=== PATIENT | female | born 1955 | race African-American/Black ===

== ENCOUNTER 2016-11-06 10:29 | Emergency (ER) | payer MEDICARE, MEDICAID ==
[2016-11-06] MEDS ORDERED: Sodium Chloride 0.9% 1,000 ML ONE (11:17)
[2016-11-06] MEDS ORDERED: Ondansetron HCl/PF 4 MG/2 ML Vial ONE (11:28)
[2016-11-06 11:29] LABS: #Basophils 0.1 thou/uL (0.0-0.2); #Lymphocytes 1.6 thou/uL (1.20-3.40); #Monocytes 0.3 thou/uL (0.11-0.59); #Neutrophils 5.1 thou/uL (1.40-6.50); %Basophils 0.8 % (0.0-1.0); %Eosinophils 0.1 % (0.0-10.0); %Lymphocytes 22.9 % (21.0-51.0); %Monocytes 4.5 % (0.0-10.0); %Neutrophils 71.6 % (42.0-75.0); Hemoglobin 14.7 g/dL (12.0-16.0); Mean Corpuscular HGB CONC 32.5 g/dL (32.0-36.0); Mean Corpuscular Hemoglobin 27.1 pg (27.0-31.0); Mean Corpuscular Volume 83.3 fl (81.0-99.0); Mean Platelet Volume 7.2 fL (7.4-10.4); Platelet Count 281 thou/uL (130-400); RBC Distribution Width 13.3 % (11.5-14.5); Red Blood Cell (RBC) Count 5.41 mill/uL (4.20-5.40); White Blood Cell (WBC) Count 7.2 thou/uL (4.8-10.8)
[2016-11-06 11:41] LABS: CKMB 0.8 ng/mL (0-6.6); Troponin I Less than 0.010 ng/mL (< 0.028)
[2016-11-06 11:49] LABS: ALT (SGPT) 26 U/L (0-55); AST (SGOT) 21 U/L (5-34); Albumin 4.1 g/dL (3.4-4.8); Alkaline Phosphatase 78 U/L (40-150); Amylase 47 U/L (25-125); Anion Gap 18 mmol/L (10-20); BUN (Urea Nitrogen) 13 mg/dL (9.8-20.1); Bilirubin, Total 0.4 mg/dL (0.2-1.2); CK (CPK) 98 U/L (29-168); Calc. Creatinine Clearance 0 mL/min (70-130); Calcium 8.7 mg/dL (7.8-10.44); Carbon Dioxide 16 mmol/L (23-31); Chloride 105 mmol/L (98-107); Estimated GFR-MDRD 86; Globulin 3.5 g/dL (2.4-3.5); Glucose 104 mg/dL (80-115); Lipase 4 U/L (8-78); Potassium 4.5 mmol/L (3.5-5.1); Protein, Total 7.6 g/dL (5.8-8.1); Sodium 134 mmol/L (136-145)
== END 2016-11-06 12:35 | disposition home or self-care (01) ==
LOC: NAV ERS 10:29
DX: R10.13 Epigastric pain (principal); R10.33 Periumbilical pain; R19.7 Diarrhea, unspecified; I10 Essential (primary) hypertension; E11.9 Type 2 diabetes mellitus without complications; J45.909 Unspecified asthma, uncomplicated; Z79.82 Long term (current) use of aspirin; Z79.84 Long term (current) use of oral hypoglycemic drugs; Z79.891 Long term (current) use of opiate analgesic; Z79.899 Other long term (current) drug therapy
CPT/HCPCS: 80053; 82150; 82553; 83690; 84484; 85025; 93005; 96361; 96374; 96375; J2270; J2405; J7050

== ENCOUNTER 2017-01-29 09:10 | Outpatient (CLI) | payer MEDICARE ==
[2017-01-29 11:34] LABS: #Basophils 0.1 thou/uL (0.0-0.2); #Lymphocytes 2.1 thou/uL (1.20-3.40); #Monocytes 0.3 thou/uL (0.11-0.59); #Neutrophils 2.6 thou/uL (1.40-6.50); %Basophils 1.1 % (0.0-1.0); %Eosinophils 0.1 % (0.0-10.0); %Lymphocytes 41.1 % (21.0-51.0); %Monocytes 6.7 % (0.0-10.0); %Neutrophils 51.1 % (42.0-75.0); Hemoglobin 13.6 g/dL (12.0-16.0); Mean Corpuscular HGB CONC 31.6 g/dL (32.0-36.0); Mean Corpuscular Hemoglobin 27.2 pg (27.0-31.0); Mean Corpuscular Volume 86.1 fl (81.0-99.0); Mean Platelet Volume 6.5 fL (7.4-10.4); Platelet Count 332 thou/uL (130-400); RBC Distribution Width 13.6 % (11.5-14.5); White Blood Cell (WBC) Count 5.2 thou/uL (4.8-10.8)
[2017-01-29 11:43] LABS: Anion Gap 17 mmol/L (10-20); BUN (Urea Nitrogen) 13 mg/dL (9.8-20.1); Calc. Creatinine Clearance 0 mL/min (70-130); Calcium 9.5 mg/dL (7.8-10.44); Carbon Dioxide 21 mmol/L (23-31); Cardiac Risk 3.7 (Less than 4.5); Chloride 103 mmol/L (98-107); Cholesterol 157 mg/dl (< 200 Desired); Estimated GFR-MDRD 82; Glucose 85 mg/dL (80-115); HDL Cholesterol 43 mg/dL (>60 Neg Risk); LDL Cholesterol, Calculated 96 mg/dL; Potassium 4.1 mmol/L (3.5-5.1); Sodium 137 mmol/L (136-145); Triglycerides 89 mg/dL (Less than 150)
[2017-01-29 12:01] LABS: Hemoglobin A1c 5.4 % (4.0-6.0)
== END 2017-01-29 09:11 | disposition home or self-care (01) ==
LOC: NAV LAB 09:10
PROVIDERS: ATTEND Family Medicine
DX: E78.5 Hyperlipidemia, unspecified (principal); E11.9 Type 2 diabetes mellitus without complications; I10 Essential (primary) hypertension
CPT/HCPCS: 80048; 80061; 83036; 85025

== ENCOUNTER 2017-05-26 20:54 | Emergency (ER) | payer MEDICARE, MEDICAID ==
[2017-05-26] MEDS ORDERED: Ibuprofen 200 MG TAB ONE (21:13)
== END 2017-05-26 21:17 | disposition home or self-care (01) ==
LOC: NAV ERS 20:54
DX: S39.012A Strain of muscle, fascia and tendon of lower back, initial encounter (principal); I10 Essential (primary) hypertension; E11.9 Type 2 diabetes mellitus without complications; J45.909 Unspecified asthma, uncomplicated; Z79.891 Long term (current) use of opiate analgesic; Z79.82 Long term (current) use of aspirin; Z79.899 Other long term (current) drug therapy; Z79.84 Long term (current) use of oral hypoglycemic drugs; X50.1XXA Overexertion from prolonged static or awkward postures, initial encounter
CPT/HCPCS: 99283

== ENCOUNTER 2017-06-05 10:29 | Emergency (ER) | payer MEDICARE, MEDICAID | END 2017-06-05 11:11 | disposition home or self-care (01) | LOC: NAV ERS 10:29 | DX: J01.90 Acute sinusitis, unspecified (principal); E11.43 Type 2 diabetes mellitus with diabetic autonomic (poly)neuropathy; K31.84 Gastroparesis; I10 Essential (primary) hypertension; J45.909 Unspecified asthma, uncomplicated; Z79.84 Long term (current) use of oral hypoglycemic drugs; Z79.82 Long term (current) use of aspirin; Z79.899 Other long term (current) drug therapy | CPT/HCPCS: 99283 ==

== ENCOUNTER 2017-08-06 18:40 | Emergency (ER) | payer MEDICARE, MEDICAID ==
[2017-08-06 19:04] LABS: Bilirubin Negative (Negative); Blood, Urine Negative (Negative); Clarity Clear (Clear); Glucose, Urine (Dipstick) Negative (Negative); Leukocyte Negative (Negative); Nitrite Negative (Negative); Protein, Urine (Dipstick) Negative (Neg-Trace); pH, Urine 5.5 (5.0-9.0)
[2017-08-06 19:09] LABS: Specific Gravity, Urine 1.028 (1.002-1.036)
[2017-08-06] MEDS ORDERED: Promethazine HCl 25 MG/ML VIAL ONE (19:29)
[2017-08-06] MEDS ORDERED: Sodium Chloride 0.9% 1,000 ML ONE (19:29)
[2017-08-06 19:40] LABS: #Basophils 0.1 thou/uL (0.0-0.2); #Lymphocytes 3.1 thou/uL (1.20-3.40); #Monocytes 0.4 thou/uL (0.11-0.59); #Neutrophils 3.7 thou/uL (1.40-6.50); %Basophils 0.9 % (0.0-1.0); %Eosinophils 0.1 % (0.0-10.0); %Lymphocytes 42.7 % (21.0-51.0); %Monocytes 5.2 % (0.0-10.0); %Neutrophils 51.1 % (42.0-75.0); Hemoglobin 13.7 g/dL (12.0-16.0); Mean Corpuscular HGB CONC 32.6 g/dL (32.0-36.0); Mean Corpuscular Hemoglobin 26.7 pg (27.0-31.0); Mean Platelet Volume 8.4 fL (7.4-10.4); Platelet Count 320 thou/uL (130-400); RBC Distribution Width 12.8 % (11.5-14.5); Red Blood Cell (RBC) Count 5.12 mill/uL (4.20-5.40); White Blood Cell (WBC) Count 7.2 thou/uL (4.8-10.8)
[2017-08-06 20:02] LABS: ALT (SGPT) 16 U/L (8-55); AST (SGOT) 13 U/L (5-34); Albumin 4.1 g/dL (3.4-4.8); Alkaline Phosphatase 71 U/L (40-150); Anion Gap 14 mmol/L (10-20); BUN (Urea Nitrogen) 9 mg/dL (9.8-20.1); Bilirubin, Total 0.3 mg/dL (0.2-1.2); Calc. Creatinine Clearance 0 mL/min (70-130); Calcium 9.5 mg/dL (7.8-10.44); Carbon Dioxide 24 mmol/L (23-31); Chloride 104 mmol/L (98-107); Estimated GFR-MDRD 73; Globulin 2.9 g/dL (2.4-3.5); Glucose 98 mg/dL (80-115); Lipase 4 U/L (8-78); Potassium 3.9 mmol/L (3.5-5.1); Sodium 138 mmol/L (136-145)
== END 2017-08-06 20:55 | disposition home or self-care (01) ==
LOC: NAV ERS 18:40
DX: R10.13 Epigastric pain (principal); I10 Essential (primary) hypertension; E11.43 Type 2 diabetes mellitus with diabetic autonomic (poly)neuropathy; K31.84 Gastroparesis; J45.909 Unspecified asthma, uncomplicated; Z79.82 Long term (current) use of aspirin; Z79.52 Long term (current) use of systemic steroids; Z79.899 Other long term (current) drug therapy
CPT/HCPCS: 80053; 81003; 83690; 85025; 93005; 96361; 96372; 96374; J2550; J7050

== ENCOUNTER 2018-02-05 00:45 | Emergency (ER) | payer MEDICARE, MEDICAID ==
[2018-02-05] MEDS ORDERED: Acetaminophen 500 MG TAB ONE (01:10)
[2018-02-05 01:15] LABS: Bilirubin Negative (Negative); Blood, Urine Trace (Negative); Clarity Clear (Clear); Glucose, Urine (Dipstick) Negative (Negative); Leukocyte Negative (Negative); Nitrite Negative (Negative); Protein, Urine (Dipstick) Negative (Neg-Trace); Urobilinogen 0.2 mg/dL (0.2-1.0); pH, Urine 5.5 (5.0-9.0)
[2018-02-05 01:20] LABS: RBC/HPF 0-3 HPF (0-3); Squamous Epithelial 0-3 HPF (0-3); WBC/HPF None Seen HPF (0-3)
--- NOTE | 2018-02-05 09:53 | RAD ---
RADIOGRAPH CHEST 2 VIEWS: HISTORY: A 62-year-old female with fever and cough. FINDINGS: There is no air space density, pulmonary edema, pleural effusion, pneumothorax, or cardiomegaly. IMPRESSION: No acute cardiopulmonary findings. jn [] POS: [facility]
== END 2018-02-05 01:30 | disposition home or self-care (01) ==
LOC: NAV ERS 00:45
DX: R50.9 Fever, unspecified (principal); R05 Cough; I10 Essential (primary) hypertension; Z79.899 Other long term (current) drug therapy; Z79.84 Long term (current) use of oral hypoglycemic drugs; Z79.82 Long term (current) use of aspirin
CPT/HCPCS: 36416; 71046; 81003; 81015; 99283

== ENCOUNTER 2018-06-04 15:22 | Emergency (ER) | payer MEDICARE, MEDICAID ==
[2018-06-04] MEDS ORDERED: HYDROcodone/Acetaminophen 5/325 mg Tablet ONE (16:12)
--- NOTE | 2018-06-04 16:29 | RAD ---
RADIOGRAPH RIGHT SHOULDER THREE VIEWS: HISTORY: A 62-year-old female with nontraumatic right shoulder pain for one month, worsening recently. FINDINGS: No fracture or dislocation. Mild to moderate degenerative changes at the AC joint. No high-grade DJ D at the glenohumeral joint. IMPRESSION: Osteoarthrosis of the acromioclavicular joint. POS: [facility]
== END 2018-06-04 17:23 | disposition home or self-care (01) ==
LOC: NAV ERS 15:22
DX: M25.511 Pain in right shoulder (principal); I10 Essential (primary) hypertension; E11.9 Type 2 diabetes mellitus without complications; J45.909 Unspecified asthma, uncomplicated; Z79.899 Other long term (current) drug therapy

== ENCOUNTER 2018-08-09 20:14 | Emergency (ER) | payer MEDICARE, MEDICAID ==
[2018-08-09] MEDS ORDERED: Albuterol Sulfate 2.5 mg/3 ml Neb ONE (21:30)
[2018-08-09] MEDS ORDERED: Acetaminophen 325 MG TAB ONE (21:30)
[2018-08-09] MEDS ORDERED: Promethazine 25 MG TAB ONE (21:30)
--- NOTE | 2018-08-09 22:16 | RAD ---
CHEST TWO VIEWS: HISTORY: Cough. COMPARISON: 02/05/2018 FINDINGS: Enlarged cardiac silhouette. Pulmonary vessels and hilum are normal. Costophrenic angles are clear. No mass. No consolidation. No pneumothorax or osseous abnormalities. Small hiatal hernia is susp ected. IMPRESSION: Cardiomegaly. No acute cardiopulmonary process. POS: [facility]
[2018-08-09] MEDS ORDERED: predniSONE 20 MG TAB ONE (22:28)
[2018-08-09] MEDS ORDERED: Azithromycin 250 MG TAB ONE (22:28)
== END 2018-08-09 22:39 | disposition home or self-care (01) ==
LOC: NAV ERS 20:14
DX: R06.02 Shortness of breath (principal); I10 Essential (primary) hypertension; R05 Cough; E11.9 Type 2 diabetes mellitus without complications; J45.909 Unspecified asthma, uncomplicated; Z79.899 Other long term (current) drug therapy; Z79.84 Long term (current) use of oral hypoglycemic drugs; Z79.82 Long term (current) use of aspirin
CPT/HCPCS: 71046; J7506; J7611; Q0169

== ENCOUNTER 2018-09-20 09:38 | Emergency (ER) | payer MEDICARE, MEDICAID ==
[2018-09-20] MEDS ORDERED: Adacel (T-DAP) 0.5 ML SYRINGE ONE (10:27)
[2018-09-20] MEDS ORDERED: Bacitracin Zinc 1 Packet ONE (10:27)
== END 2018-09-20 10:55 | disposition home or self-care (01) ==
LOC: NAV ERS 09:38
DX: T63.441A Toxic effect of venom of bees, accidental (unintentional), initial encounter (principal); J45.909 Unspecified asthma, uncomplicated; E11.43 Type 2 diabetes mellitus with diabetic autonomic (poly)neuropathy; K31.84 Gastroparesis
CPT/HCPCS: 90471; 90715

== ENCOUNTER 2018-12-27 11:24 | Emergency (ER) | payer MEDICARE, MEDICAID ==
[2018-12-27 12:07] LABS: #Lymphocytes 2.2 thou/uL (1.20-3.40); #Monocytes 0.5 thou/uL (0.11-0.59); #Neutrophils 4.1 thou/uL (1.40-6.50); %Basophils 0.5 % (0.0-1.0); %Lymphocytes 32.4 % (21.0-51.0); %Monocytes 7.1 % (0.0-10.0); Hemoglobin 13.9 g/dL (12.0-16.0); Mean Corpuscular HGB CONC 30.8 g/dL (32.0-36.0); Mean Corpuscular Hemoglobin 25.8 pg (27.0-31.0); Mean Corpuscular Volume 83.9 fL (78.0-98.0); Platelet Count 361 thou/uL (130-400); RBC Distribution Width 13.1 % (11.5-14.5); Red Blood Cell (RBC) Count 5.37 mill/uL (4.20-5.40); White Blood Cell (WBC) Count 6.8 thou/uL (4.8-10.8)
[2018-12-27] MEDS ORDERED: Sodium Chloride 0.9% 1,000 ML ONE (12:09)
[2018-12-27] MEDS ORDERED: Fentanyl 100 MCG/2 ML VIAL ONE (12:09)
[2018-12-27] MEDS ORDERED: Ondansetron PF 4 MG/2 ML Vial ONE (12:10)
[2018-12-27] MEDS ORDERED: Pantoprazole 40 MG VIAL ONE (12:10)
[2018-12-27 12:29] LABS: ALT (SGPT) 29 U/L (8-55); AST (SGOT) 20 U/L (5-34); Albumin 4.2 g/dL (3.4-4.8); Alkaline Phosphatase 94 U/L (40-150); Anion Gap 15 mmol/L (10-20); BUN (Urea Nitrogen) 11 mg/dL (9.8-20.1); Bilirubin, Total 0.3 mg/dL (0.2-1.2); CK (CPK) 148 U/L (29-168); Calc. Creatinine Clearance 0 mL/min (70-130); Calcium 8.9 mg/dL (7.8-10.44); Carbon Dioxide 22 mmol/L (23-31); Chloride 106 mmol/L (98-107); Estimated GFR-MDRD 83; Globulin 2.6 g/dL (2.4-3.5); Glucose 90 mg/dL (80-115); Lipase 4 U/L (8-78); Protein, Total 6.8 g/dL (6.0-8.3); Sodium 139 mmol/L (136-145)
[2018-12-27] MEDS ORDERED: Lidocaine Viscous Sol 2% 15 ml UD Cup ONE (12:34)
[2018-12-27] MEDS ORDERED: Mag-Al Plus 1200 MG/1200 MG/120 MG/30 ML UDCUP ONE (12:34)
--- NOTE | 2018-12-27 12:45 | ULT ---
Abdominal ultrasound: Grayscale images of abdomen obtained according to protocol. INDICATIONS: Abdominal pain FINDINGS: Exam is limited due to patient's body habitus. Patient is post cholecystectomy. Common bile duct is normal caliber. Liver and spleen appear unremarkable. Pancreas is mostly obscured but appears unremarkable as visualized. Aorta and IVC are not adequately imaged. Both kidneys are imaged and appear unremarkable. IMPRESSION: Limited exam. No abnormality identified.
== END 2018-12-27 13:55 | disposition home or self-care (01) ==
LOC: NAV ERS 11:24
DX: R10.13 Epigastric pain (principal); R10.11 Right upper quadrant pain; E11.43 Type 2 diabetes mellitus with diabetic autonomic (poly)neuropathy; K31.84 Gastroparesis; I10 Essential (primary) hypertension; J45.909 Unspecified asthma, uncomplicated; R11.0 Nausea; Z79.899 Other long term (current) drug therapy; Z79.82 Long term (current) use of aspirin; Z79.84 Long term (current) use of oral hypoglycemic drugs
CPT/HCPCS: 76700; 80053; 82550; 83690; 84484; 85025; 93005; C9113; J2405; J3010; J7050

== ENCOUNTER 2019-07-01 12:49 | Emergency (ER) | payer MEDICARE, MEDICAID ==
[2019-07-01] MEDS ORDERED: HYDROcodone/Acetaminophen 5/325 mg Tablet ONE (13:13)
--- NOTE | 2019-07-01 13:34 | RAD ---
RIGHT KNEE FOUR VIEWS: HISTORY: Knee pain. Fall with injury. FINDINGS: Moderate degenerative changes. Loss of medial and lateral joint space, more prominent medially. Spurr ing from the femoral condyles and patella. No fracture or acute abnormality. No evidence of joint eff usion. IMPRESSION: Moderate degenerative changes of right knee. POS: [facility]
--- NOTE | 2019-07-01 13:41 | RAD ---
LUMBAR SPINE FOUR VIEWS: HISTORY: Fall with low back pain. FINDINGS: Lumbar vertebrae maintain normal height and alignment. Disk spaces are preserved. Mild degenerative s purring. Mild facet hypertrophy. No evidence of spondylolisthesis. Prominent anterior bridging osteophyte seen at the T10-T11 level on the sagittal view. IMPRESSION: Mild degenerative changes of the lumbar spine. No compression or acute fracture identified. POS: [facility]
== END 2019-07-01 14:25 | disposition home or self-care (01) ==
LOC: NAV ERS 12:49
DX: S83.91XA Sprain of unspecified site of right knee, initial encounter (principal); S33.5XXA Sprain of ligaments of lumbar spine, initial encounter; I10 Essential (primary) hypertension; E11.43 Type 2 diabetes mellitus with diabetic autonomic (poly)neuropathy; K31.84 Gastroparesis; J45.909 Unspecified asthma, uncomplicated; Z79.899 Other long term (current) drug therapy; Z79.4 Long term (current) use of insulin; Z79.891 Long term (current) use of opiate analgesic; Z79.82 Long term (current) use of aspirin; W18.30XA Fall on same level, unspecified, initial encounter
CPT/HCPCS: 72100

== ENCOUNTER 2020-04-30 09:48 | Emergency (ER) | payer MEDICARE, MEDICAID ==
[2020-04-30] MEDS ORDERED: methylPREDNISolone Sod Succ/PF 125 MG/2 ML VIAL ONE (11:00)
== END 2020-04-30 11:09 | disposition home or self-care (01) ==
LOC: NAV ERS 09:48
DX: J45.909 Unspecified asthma, uncomplicated (principal); E11.9 Type 2 diabetes mellitus without complications; I10 Essential (primary) hypertension; Z79.899 Other long term (current) drug therapy
CPT/HCPCS: 96372; 99283; J2930

== ENCOUNTER 2020-10-28 17:15 | Emergency (ER) | payer MEDICARE, OTHER, MEDICAID ==
[2020-10-28] MEDS ORDERED: Famotidine/PF 20 mg/2ml Vial ONE (17:53)
[2020-10-28] MEDS ORDERED: methylPREDNISolone Sod Succ/PF 125 MG/2 ML VIAL ONE (17:53)
[2020-10-28] MEDS ORDERED: diphenhydrAMINE 50 MG/ML VIAL ONE (17:53)
== END 2020-10-28 18:53 | disposition home or self-care (01) ==
LOC: NAV ERS 17:15
DX: L50.0 Allergic urticaria (principal); E11.9 Type 2 diabetes mellitus without complications; I10 Essential (primary) hypertension; Z79.899 Other long term (current) drug therapy
CPT/HCPCS: 94760; 96374; 96375; J1200; J2930; S0028

== ENCOUNTER 2022-01-22 08:21 | Outpatient (CLI) | payer MEDICARE, MEDICAID | END 2022-01-22 08:22 | disposition home or self-care (01) | LOC: NAV RAD 08:21 | PROVIDERS: ATTEND Family Medicine | DX: M47.16 Other spondylosis with myelopathy, lumbar region (principal) | CPT/HCPCS: 72100 ==

== ENCOUNTER 2022-05-15 02:34 | Emergency (ER) | payer OTHER, MEDICAID ==
[2022-05-15] MEDS ORDERED: Benzonatate 100 MG CAP ONE (03:25)
[2022-05-15] MEDS ORDERED: methylPREDNISolone Acetate 40 mg/ml Vial ONE (03:25)
== END 2022-05-15 03:50 | disposition home or self-care (01) ==
LOC: NAV ERS 02:34
DX: J20.9 Acute bronchitis, unspecified (principal); H10.13 Acute atopic conjunctivitis, bilateral; J30.9 Allergic rhinitis, unspecified; I10 Essential (primary) hypertension; E11.43 Type 2 diabetes mellitus with diabetic autonomic (poly)neuropathy; K31.84 Gastroparesis
CPT/HCPCS: 96372; 99283; J1030

== ENCOUNTER 2022-10-30 22:20 | Emergency (ER) | payer OTHER, MEDICAID ==
[2022-10-30 23:00] LABS: Bacteria/HPF None Seen HPF (None Seen); Bilirubin Negative (Negative); Blood, Urine Trace (Negative); Clarity Clear (Clear); Glucose, Urine (Dipstick) >=1000 mg/dL (Negative); Ketone, Urine Negative (Negative); Leukocyte Negative (Negative); Nitrite Negative (Negative); Protein, Urine (Dipstick) Negative (Neg-Trace); RBC/HPF None Seen HPF (0-3); Specific Gravity, Urine 1.015 (1.005-1.030); Urobilinogen 0.2 mg/dL (Less than 2); WBC/HPF None Seen HPF (0-3); Yeast-Budding Rare HPF (None Seen); pH, Urine 5.5 (5.0-9.0)
[2022-10-30 23:01] LABS: #Lymphocytes 2.1 thou/uL (1.20-3.40); #Monocytes 0.4 thou/uL (0.11-0.59); #Neutrophils 4.3 thou/uL (1.40-6.50); %Basophils 0.7 % (0.0-1.0); %Eosinophils 0.1 % (0.0-10.0); %Lymphocytes 30.5 % (21.0-51.0); %Monocytes 6.2 % (0.0-10.0); %Neutrophils 62.5 % (42.0-75.0); Hemoglobin 15.4 g/dL (12.0-16.0); Mean Corpuscular HGB CONC 31.2 g/dL (32.0-36.0); Mean Corpuscular Hemoglobin 26.8 pg (27.0-31.0); Mean Corpuscular Volume 85.9 fl (78.0-98.0); Mean Platelet Volume 6.7 fL (7.4-10.4); Platelet Count 307 10x3/uL (130-400); Red Blood Cell (RBC) Count 5.74 mill/uL (4.20-5.40); White Blood Cell (WBC) Count 6.8 10x3/uL (4.8-10.8)
[2022-10-30] MEDS ORDERED: Sodium Chloride 0.9% 1,000 ML ONE (23:02)
[2022-10-30] MEDS ORDERED: Ondansetron PF 4 MG/2 ML Vial ONE (23:02)
[2022-10-30] MEDS ORDERED: Dicyclomine 20 MG/2 ML VIAL ONE (23:02)
[2022-10-30 23:15] LABS: ALT (SGPT) 26 U/L (8-55); AST (SGOT) 19 U/L (5-34); Albumin 4.1 g/dL (3.4-4.8); Alkaline Phosphatase 86 U/L (40-110); Anion Gap 18 mmol/L (10-20); BUN (Urea Nitrogen) 7 mg/dL (9.8-20.1); Bilirubin, Total 0.4 mg/dL (0.2-1.2); Calc. Creatinine Clearance 0 mL/min (70-130); Calcium 8.7 mg/dL (7.8-10.44); Carbon Dioxide 22 mmol/L (23-31); Chloride 104 mmol/L (98-107); Estimated GFR 77; Globulin 2.9 g/dL (2.4-3.5); Glucose 170 mg/dL (80-115); Potassium 2.9 mmol/L (3.5-5.1); Sodium 141 mmol/L (136-145)
[2022-10-30] MEDS ORDERED: Potassium Chloride 20 MEQ TAB ONE (23:43)
[2022-10-31] MEDS ORDERED: Dextrose 5 %-0.45 % NaCl 1,000 ML ONE (10:10)
[2022-10-31] MEDS ORDERED: Morphine 2 MG/ML VIAL ONE (10:10)
[2022-10-31] MEDS ORDERED: Potassium Chloride 20 MEQ/100 ML PREMIX BAG ONE (11:13)
== END 2022-10-31 13:42 | disposition short-term general hospital (02) ==
LOC: NAV ERS 22:20
DX: K56.609 Unspecified intestinal obstruction, unspecified as to partial versus complete obstruction (principal); E11.9 Type 2 diabetes mellitus without complications; I10 Essential (primary) hypertension; J45.909 Unspecified asthma, uncomplicated; Z79.899 Other long term (current) drug therapy; Z79.84 Long term (current) use of oral hypoglycemic drugs; Z79.82 Long term (current) use of aspirin; E87.6 Hypokalemia
CPT/HCPCS: 36416; 74176; 80053; 81003; 81015; 83605; 83690; 85025; 87040; 96365; 96366; 96372; 96375; J2272; J2405; J3480; J7042; J7050

== ENCOUNTER 2023-08-10 07:11 | Emergency (ER) | payer OTHER, MEDICAID ==
[2023-08-10] MEDS ORDERED: Ipratropium/Albuterol 3 ML NEB ONE ×2 (07:48→08:51)
[2023-08-10 08:18] LABS: #Basophils 0.1 thou/uL (0.0-0.2); #Lymphocytes 2.7 thou/uL (1.20-3.40); #Monocytes 0.6 thou/uL (0.11-0.59); #Neutrophils 5.4 thou/uL (1.40-6.50); %Basophils 1.3 % (0.0-1.0); %Eosinophils 0.1 % (0.0-10.0); %Lymphocytes 30.8 % (21.0-51.0); %Neutrophils 60.9 % (42.0-75.0); Hematocrit 44.3 % (36.0-47.0); Hemoglobin 14.4 g/dL (12.0-16.0); Mean Corpuscular HGB CONC 32.5 g/dL (32.0-36.0); Mean Platelet Volume 7.4 fL (7.4-10.4); Platelet Count 312 10x3/uL (130-400); RBC Distribution Width 13.6 % (11.5-14.5); Red Blood Cell (RBC) Count 5.34 mill/uL (4.20-5.40); White Blood Cell (WBC) Count 8.8 10x3/uL (4.8-10.8)
[2023-08-10 08:29] LABS: Troponin I Less than 0.010 ng/mL (< 0.028)
[2023-08-10 08:33] LABS: ALT (SGPT) 46 U/L (8-55); AST (SGOT) 23 U/L (5-34); Albumin 3.8 g/dL (3.4-4.8); Alkaline Phosphatase 95 U/L (40-110); Anion Gap 16 mmol/L (10-20); BUN (Urea Nitrogen) 9 mg/dL (9.8-20.1); Bilirubin, Total 0.3 mg/dL (0.2-1.2); Calc. Creatinine Clearance 0 mL/min (70-130); Calcium 8.8 mg/dL (7.8-10.44); Carbon Dioxide 24 mmol/L (23-31); Chloride 106 mmol/L (98-107); Estimated GFR 80; Globulin 2.5 g/dL (2.4-3.5); Glucose 128 mg/dL (80-115); Potassium 3.4 mmol/L (3.5-5.1); Protein, Total 6.3 g/dL (5.8-8.1); Sodium 143 mmol/L (136-145)
[2023-08-10 09:01] LABS: SARS-CoV-2 NAA Rapid Test Not Detected (NotDetected)
[2023-08-10] MEDS ORDERED: predniSONE 20 MG TAB ONE (09:38)
== END 2023-08-10 09:53 | disposition home or self-care (01) ==
LOC: NAV ERS 07:11
DX: J45.909 Unspecified asthma, uncomplicated (principal); J42 Unspecified chronic bronchitis; E11.9 Type 2 diabetes mellitus without complications; I10 Essential (primary) hypertension; Z79.899 Other long term (current) drug therapy; Z79.84 Long term (current) use of oral hypoglycemic drugs; E78.00 Pure hypercholesterolemia, unspecified
CPT/HCPCS: 0241U; 36416; 71046; 80053; 83605; 83880; 84484; 85025; 87040; 87070; 87205; 93005; 94640; 94760; J7512; J7620

== ENCOUNTER 2024-06-01 18:14 | Emergency (ER) | payer OTHER ==
[2024-06-01] MEDS ORDERED: Morphine 4 MG/ML VIAL ONE ×3 (19:00→20:57)
[2024-06-01] MEDS ORDERED: Ondansetron PF 4 MG/2 ML Vial ONE (19:00)
[2024-06-01] MEDS ORDERED: Acetaminophen 500 MG TAB ONE (19:00)
[2024-06-01 19:26] LABS: #Basophils 0.1 thou/uL (0.0-0.2); #Lymphocytes 2.8 thou/uL (1.20-3.40); #Monocytes 0.3 thou/uL (0.11-0.59); #Neutrophils 3.5 thou/uL (1.40-6.50); %Basophils 1.4 % (0.0-1.0); %Eosinophils 0.2 % (0.0-10.0); %Lymphocytes 41.9 % (21.0-51.0); %Neutrophils 52.5 % (42.0-75.0); Hematocrit 48.6 % (36.0-47.0); Hemoglobin 15.9 g/dL (12.0-16.0); Mean Corpuscular HGB CONC 32.7 g/dL (32.0-36.0); Mean Corpuscular Hemoglobin 27.6 pg (27.0-31.0); Mean Corpuscular Volume 84.4 fl (78.0-98.0); Mean Platelet Volume 7.2 fL (7.4-10.4); Platelet Count 335 10x3/uL (130-400); RBC Distribution Width 13.3 % (11.5-14.5); Red Blood Cell (RBC) Count 5.75 mill/uL (4.20-5.40); White Blood Cell (WBC) Count 6.7 10x3/uL (4.8-10.8)
[2024-06-01 19:36] LABS: Anion Gap 17 mmol/L (10-20); BUN (Urea Nitrogen) 8 mg/dL (9.8-20.1); Calc. Creatinine Clearance 0 mL/min (70-130); Calcium 9.8 mg/dL (7.8-10.44); Carbon Dioxide 26 mmol/L (23-31); Chloride 103 mmol/L (98-107); Estimated GFR 72; Glucose 121 mg/dL (80-115); Sodium 142 mmol/L (136-145)
== END 2024-06-01 21:55 | disposition home or self-care (01) ==
LOC: NAV ERS 18:14
DX: R07.9 Chest pain, unspecified (principal); G89.11 Acute pain due to trauma; R10.9 Unspecified abdominal pain; M79.602 Pain in left arm; M25.562 Pain in left knee; I10 Essential (primary) hypertension; E78.00 Pure hypercholesterolemia, unspecified; E11.43 Type 2 diabetes mellitus with diabetic autonomic (poly)neuropathy; K31.84 Gastroparesis; J44.89 Other specified chronic obstructive pulmonary disease; Z79.84 Long term (current) use of oral hypoglycemic drugs; Z79.899 Other long term (current) drug therapy; Z79.82 Long term (current) use of aspirin
CPT/HCPCS: 70450; 71250; 72125; 74176; 80048; 85025; 93005; 96374; 96375; 96376; J2272; J2405

== ENCOUNTER 2025-04-17 20:08 | Emergency (ER) | payer OTHER ==
[2025-04-17 20:53] LABS: #Basophils 0.2 thou/uL (0.0-0.2); #Eosinophils 0.0 thou/uL (0.0-0.7); #Lymphocytes 3.3 thou/uL (1.20-3.40); #Monocytes 0.5 thou/uL (0.11-0.59); #Neutrophils 4.5 thou/uL (1.40-6.50); %Basophils 2.2 % (0.0-1.0); %Eosinophils 0.1 % (0.0-10.0); %Lymphocytes 39.1 % (21.0-51.0); %Monocytes 5.8 % (0.0-10.0); %Neutrophils 52.8 % (42.0-75.0); Hematocrit 46.0 % (36.0-47.0); Hemoglobin 15.8 g/dL (12.0-16.0); Mean Corpuscular Hemoglobin 27.0 pg (27.0-31.0); Mean Corpuscular Volume 78.6 fl (78.0-98.0); Platelet Count 349 10x3/uL (130-400); Red Blood Cell (RBC) Count 5.86 mill/uL (4.20-5.40); White Blood Cell (WBC) Count 8.6 10x3/uL (4.8-10.8)
[2025-04-17 21:09] LABS: ALT (SGPT) 21 U/L (Less than 34); AST (SGOT) 25 U/L (11-34); Albumin 4.2 g/dL (3.1-4.5); Alkaline Phosphatase 83 U/L (40-110); Anion Gap 18 mmol/L (10-20); BUN (Urea Nitrogen) 9 mg/dL (9.8-20.1); Bilirubin, Total 0.3 mg/dL (0.3-1.2); Calc. Creatinine Clearance 0 mL/min (70-130); Calcium 9.8 mg/dL (7.8-10.44); Carbon Dioxide 25 mmol/L (23-31); Chloride 102 mmol/L (98-107); Globulin 3.2 g/dL (2.4-3.5); Glucose 95 mg/dL (80-115); Potassium 2.9 mmol/L (3.5-5.1); Sodium 142 mmol/L (136-145)
[2025-04-17 21:10] LABS: Troponin I Less than 0.010 ng/mL (< 0.028)
== END 2025-04-17 22:03 | disposition home or self-care (01) ==
LOC: NAV ERS 20:08
DX: J45.901 Unspecified asthma with (acute) exacerbation (principal); E87.6 Hypokalemia; E11.43 Type 2 diabetes mellitus with diabetic autonomic (poly)neuropathy; K31.84 Gastroparesis; I10 Essential (primary) hypertension; J45.909 Unspecified asthma, uncomplicated
CPT/HCPCS: 71045; 80053; 83880; 84484; 85025; 87428; 93005; 94760; 96374; J2919; J7030